=== PATIENT | female | born 1960 | race Caucasian/White ===

== ENCOUNTER 2018-12-11 18:48 | Emergency (ER) | payer BC ==
--- OUTSIDE RECORDS SUMMARY | 2018-12-11 18:51 | XMS REPORT | Clinical Summary ---
:1960 Author Organization [facility] Address [address] [place] [id number] Care Team Providers Name Role Phone Bertram Marquez MD Primary Care Provider Allergies Active Allergy Reactions Severity Noted Date Comments Sulfa (Sulfonamide Antibiotics) Medications No known medications Active Problems No known active problems Encounters Date Type Specialty Care Team Description 12/25/2017 Office Visit General Surgery Willard Robles Abdominal pain, MD [place] generalized (Primary Dx) after 12/10/2017 Family History Medical History Relation Name Comments Heart disease Father Hypertension Father Heart disease Mother Relation Name Status Comments Father Mother Social History Tobacco Use Types Packs/Day Years Used Date Never Smoker Smokeless Tobacco: Never Used Alcohol Use Drinks/Week oz/Week Comments No Sex Assigned at Date Recorded Not on file Job Start Date Occupation Industry Not on file Not on file Not on file Travel History Travel Start Travel End No recent travel history available. Last Filed Vital Signs Vital Sign Reading Time Taken Blood Pressure 134/81 12/25/2017 8:08 AM CDT Pulse 60 12/25/2017 8:08 AM CDT Temperature - - Respiratory Rate - - Oxygen Saturation - - Inhaled Oxygen Concentration - - Weight 90.3 kg (199 lb) 12/25/2017 8:08 AM CDT Height 165.1 cm (5' 5") 12/25/2017 8:08 AM CDT Body Mass Index 33.12 12/25/2017 8:08 AM CDT Plan of Treatment Health Maintenance Due Date Last Done Comments BREAST CANCER SCREENING 2008 COLONOSCOPY SCREENING 2008 SHINGLES VACCINES (#1) 2008 INFLUENZA VACCINE 01/29/2019 Results Not on fileafter 12/10/2017 Advance Directives Patient has advance care planning documents on file. For more information, please contact:[facility] [place] [address]
--- NOTE | 2018-12-11 20:26 | ER ---
Nurse's Notes [facility] Name: Dorota Magaña Age: 58 yrs Sex: Female : 1960 Arrival Date: 12/11/2018 Time: 18:57 Bed 13 Private MD: Diagnosis: Acute laryngitis;Acute upper respiratory infection, unspecified Presentation: 12/11 18:57 Presenting complaint: Patient states: sore throat for two days, feels like throat is ch swollen, feels like glands are swollen. nasal drainage, not feeling well. Transition of care: patient was not received from another setting of care. Onset of symptoms was December 09, 2018. Risk Assessment: Do you want to hurt yourself or someone else? Patient reports no desire to harm self or others. Initial Sepsis Screen: Does the patient meet any 2 criteria? No. Patient's initial sepsis screen is negative. Does the patient have a suspected source of infection? No. Patient's initial sepsis screen is negative. Care prior to arrival: None. 18:57 Method Of Arrival: Ambulatory 18:57 Acuity: JAVAN 3 ch Triage Assessment: 19:02 General: Appears in no apparent distress. comfortable, Behavior is calm, cooperative, ch appropriate for age. Pain: Complains of pain in throat Pain currently is 8 out of 10 on a pain scale. EENT: Reports pain when swallowing. Historical: - Allergies: 19:02 Sulfa (Sulfonamide Antibiotics); ch - Home Meds: 19:02 gabapentin 100 mg oral cap [Active]; atorvastatin 20 mg oral tab 1 tab once daily ch [Active]; Synthroid 100 mcg Oral tab 1 tab once daily [Active]; alprazolam 0.5 mg Oral Tb24 1 tab once daily [Active]; amlodipine 2.5 mg tab 1 tab once daily [Active]; poroxetine er 25mg once daily [Active]; telmisartan 40 mg oral tab 1 tab once daily [Active]; Glucosamine 500 mg oral tab [Active]; Vitamin D Oral [Active]; Claritin 10 mg Oral tab 1 tab once daily [Active]; - PMHx: 19:02 graves disease; self cath- bladder doesnt work; bowel necropsy in rectum; ch - PSHx: 19:02 Hysterectomy; Cholecystectomy; bowel sx; ch - Immunization history:: Adult Immunizations up to date. - Social history:: Smoking status: Patient/guardian denies using tobacco, Patient/guardian denies using alcohol, street drugs. - Ebola Screening: : Patient negative for fever greater than or equal to 101.5 degrees Fahrenheit, and additional compatible Ebola Virus Disease symptoms Patient denies exposure to infectious person Patient denies travel to an Ebola-affected area in the 21 days before illness onset No symptoms or risks identified at this time. Screenin:10 Abuse screen: Denies threats or abuse. Nutritional screening: No deficits noted. jb4 Tuberculosis screening: No symptoms or risk factors identified. Fall Risk None identified. Assessment: 20:10 General: Appears in no apparent distress. comfortable, Behavior is calm, cooperative, jb4 appropriate for age. Pain: Complains of pain in throat Pain does not radiate. Pain currently is 5 out of 10 on a pain scale. Neuro: Level of Consciousness is awake, alert, obeys commands, Oriented to person, place, time, situation. Cardiovascular: Patient's skin is warm and dry. Respiratory: Airway is patent Respiratory effort is even, unlabored, Respiratory pattern is regular, symmetrical, Breath sounds are clear bilaterally. GI: No signs and/or symptoms were reported involving the gastrointestinal system. : No signs and/or symptoms were reported regarding the genitourinary system. EENT: Reports sore throat. Derm: Skin is intact, Skin is pink, warm \T\ dry. Musculoskeletal: Circulation, motion, and sensation intact. 20:45 Reassessment: Patient appears in no apparent distress at this time. Patient and/or jb4 family updated on plan of care and expected duration. Pain level reassessed. Patient is alert, oriented x 3, equal unlabored respirations, skin warm/dry/pink. Vital Signs: 19:02 BP 137 / 84; Pulse 64; Resp 16; Temp 98.8; Pulse Ox 99% on R/A; Weight 86.18 kg; Height 5 ft. 5 in. (165.10 cm); Pain 5/10; 20:45 BP 148 / 80; Pulse 73; Resp 16; Pulse Ox 100% on R/A; jb4 19:02 Body Mass Index 31.62 (86.18 kg, 165.10 cm) ED Course: 18:57 Patient arrived in ED. mr 18:58 Triage completed. 19:02 Arm band placed on left wrist. Patient placed in waiting room. 20:08 [facility]oe Mcfarlane FNP-C [facility]. snw 20:08 Shar Ruffin MD is Attending Physician. snw 20:08 Solomon Vega, RN is Primary Nurse. jb4 20:10 Patient has correct armband on for positive identification. Bed in low position. Call jb4 light in reach. Side rails up X 1. Pulse ox on. NIBP on. 21:00 No provider procedures requiring assistance completed. Patient did not have IV access jb4 during this emergency room visit. Administered Medications: 20:40 Drug: Decadron 10 mg Route: IM; Site: Other; jb4 21:00 Follow up: Response: No adverse reaction jb4 20:40 Drug: Motrin Suspension 2 tsp Route: PO; jb4 21:00 Follow up: Response: No adverse reaction jb4 Outcome: 20:25 Discharge ordered by . snw 21:00 Discharged to home ambulatory, with family. jb4 21:00 Condition: stable 21:00 Discharge instructions given to patient, Instructed on discharge instructions, follow up and referral plans. Demonstrated understanding of instructions, follow-up care. 21:11 Patient left the ED. jb4 Signatures: Deidra Manzano, MARTHA RN Zoe Mcfarlane FNP-C FNP-[facility] Brianne Pacheco mr Solomon Vega, RN RN jb4
--- NOTE | 2018-12-11 20:26 | EDPHYS ---
Physician Documentation [facility] Name: Dorota Magaña Age: 58 yrs Sex: Female : 1960 Arrival Date: 12/11/2018 Time: 18:57 Bed 13 Private MD: ED Physician Shar Ruffin HPI: 12/11 20:43 This 58 yrs old Female presents to ER via Ambulatory with complaints of Sore snw Throat, Breathing Difficulty. 20:43 The patient presents with sore throat. The patient describes throat pain as scratchy, snw suffocating. Onset: The symptoms/episode began/occurred suddenly, 2 day(s) ago, and became persistent. Severity of symptoms: At their worst the symptoms were mild, moderate. Associated signs and symptoms: Pertinent positives: cough, flu-like symptoms. The patient has not experienced similar symptoms in the past. It is unknown whether or not the patient has recently seen a physician. Historical: - Allergies: 19:02 Sulfa (Sulfonamide Antibiotics); ch - Home Meds: 19:02 gabapentin 100 mg oral cap [Active]; atorvastatin 20 mg oral tab 1 tab once daily ch [Active]; Synthroid 100 mcg Oral tab 1 tab once daily [Active]; alprazolam 0.5 mg Oral Tb24 1 tab once daily [Active]; amlodipine 2.5 mg tab 1 tab once daily [Active]; poroxetine er 25mg once daily [Active]; telmisartan 40 mg oral tab 1 tab once daily [Active]; Glucosamine 500 mg oral tab [Active]; Vitamin D Oral [Active]; Claritin 10 mg Oral tab 1 tab once daily [Active]; - PMHx: 19:02 graves disease; self cath- bladder doesnt work; bowel necropsy in rectum; ch - PSHx: 19:02 Hysterectomy; Cholecystectomy; bowel sx; ch - Immunization history:: Adult Immunizations up to date. - Social history:: Smoking status: Patient/guardian denies using tobacco, Patient/guardian denies using alcohol, street drugs. - Ebola Screening: : Patient negative for fever greater than or equal to 101.5 degrees Fahrenheit, and additional compatible Ebola Virus Disease symptoms Patient denies exposure to infectious person Patient denies travel to an Ebola-affected area in the 21 days before illness onset No symptoms or risks identified at this time. ROS: 20:40 Constitutional: Negative for fever, chills, and weight loss, Eyes: Negative for injury, snw pain, redness, and discharge, Cardiovascular: Negative for chest pain, palpitations, and edema, Abdomen/GI: Negative for abdominal pain, nausea, vomiting, diarrhea, and constipation, Back: Negative for injury and pain, : Negative for injury, bleeding, discharge, and swelling, MS/Extremity: Negative for injury and deformity, Skin: Negative for injury, rash, and discoloration, Neuro: Negative for headache, weakness, numbness, tingling, and seizure. 20:40 ENT: Positive for ear pain, nasal discharge, sinus congestion, sore throat. 20:40 Neck: Positive for anterior lymph nodes tender. 20:40 Respiratory: Positive for cough, with no reported sputum. Exam: 20:40 Constitutional: This is a well developed, well nourished patient who is awake, alert, snw and in no acute distress. Head/Face: Normocephalic, atraumatic. Eyes: Pupils equal round and reactive to light, extra-ocular motions intact. Lids and lashes normal. Conjunctiva and sclera are non-icteric and not injected. Cornea within normal limits. Periorbital areas with no swelling, redness, or edema. 20:40 Neck: Trachea midline, no thyromegaly or masses palpated, and no cervical lymphadenopathy. Supple, full range of motion without nuchal rigidity, or vertebral point tenderness. No Meningismus. Chest/axilla: Normal chest wall appearance and motion. Nontender with no deformity. No lesions are appreciated. Cardiovascular: Regular rate and rhythm with a normal S1 and S2. No gallops, murmurs, or rubs. Normal PMI, no JVD. No pulse deficits. Respiratory: Lungs have equal breath sounds bilaterally, clear to auscultation and percussion. No rales, rhonchi or wheezes noted. No increased work of breathing, no retractions or nasal flaring. Abdomen/GI: Soft, non-tender, with normal bowel sounds. No distension or tympany. No guarding or rebound. No evidence of tenderness throughout. Back: No spinal tenderness. No costovertebral tenderness. Full range of motion. Skin: Warm, dry with normal turgor. Normal color with no rashes, no lesions, and no evidence of cellulitis. MS/ Extremity: Pulses equal, no cyanosis. Neurovascular intact. Full, normal range of motion. Neuro: Awake and alert, GCS 15, oriented to person, place, time, and situation. Cranial nerves II-XII grossly intact. Motor strength 5/5 in all extremities. Sensory grossly intact. Cerebellar exam normal. Normal gait. 20:40 ENT: TM's: are normal, Nose: is normal, Mouth: is normal, Posterior pharynx: Airway: patent, erythema, that is mild, Dental exam: normal, Voice: is hoarse. Vital Signs: 19:02 BP 137 / 84; Pulse 64; Resp 16; Temp 98.8; Pulse Ox 99% on R/A; Weight 86.18 kg; Height ch 5 ft. 5 in. (165.10 cm); Pain 5/10; 20:45 BP 148 / 80; Pulse 73; Resp 16; Pulse Ox 100% on R/A; jb4 19:02 Body Mass Index 31.62 (86.18 kg, 165.10 cm) MDM: 20:12 Patient medically screened. snw 20:43 Data reviewed: vital signs, nurses notes. Data interpreted: Pulse oximetry: on room air snw is 99 %. Interpretation: normal. Counseling: I had a detailed discussion with the patient and/or guardian regarding: the historical points, exam findings, and any diagnostic results supporting the discharge/admit diagnosis, the presence of at least one elevated blood pressure reading (>120/80) during this emergency department visit, lab results, the need for outpatient follow up, to return to the emergency department if symptoms worsen or persist or if there are any questions or concerns that arise at home. Special discussion: I have referred the patient to see his PCP for further evaluation of high blood pressure. Based on the history and exam findings, there is no indication for further emergent testing or inpatient evaluation. I discussed with the patient/guardian the need to see the primary care provider for further evaluation of the symptoms. 12/11 19:04 Order name: Strep; Complete Time: 20:13 12/11 19:31 Order name: Throat Culture EDMS Administered Medications: 20:40 Drug: Decadron 10 mg Route: IM; Site: Other; [facility] 21:00 Follow up: Response: No adverse reaction jb4 20:40 Drug: Motrin Suspension 2 tsp Route: PO; jb4 21:00 Follow up: Response: No adverse reaction jb4 Disposition: 12/12 01:48 Co-signature as Attending Physician, Shar Ruffin MD. Disposition: 12/11/18 20:25 Discharged to Home. Impression: Acute laryngitis, Acute upper respiratory infection, unspecified. - Condition is Stable. - Discharge Instructions: Laryngitis, Upper Respiratory Infection, Adult, Cool Mist Vaporizer, Rehydration, Adult. - Medication Reconciliation Form, Thank You Letter, Antibiotic Education, Prescription Opioid Use form. - Follow up: Private Physician; When: 2 - 3 days; Reason: Recheck today's complaints, Continuance of care, Re-evaluation by your physician. Follow up: Emergency Department; When: As needed; Reason: Worsening of condition. Signatures: Dispatcher [employer] EDDeidra Mcgee RN RN ch Therrien, Shelly, VISUAL MERCHANDISING COORDINATOR-C VISUAL MERCHANDISING COORDINATOR-Cs[employer] Solomon Vega RN RN jb4 Starr, MD MIGUEL Myles Corrections: (The following items were deleted from the chart) 12/11 20:26 20:25 12/11/2018 20:25 Discharged to Home. Impression: Acute laryngitis. Condition is snw Stable. Forms are Medication Reconciliation Form, Thank You Letter, Antibiotic Education, Prescription Opioid Use. Follow up: Private Physician; When: 2 - 3 days; Reason: Recheck today's complaints, Continuance of care, Re-evaluation by your physician. Follow up: Emergency Department; When: As needed; Reason: Worsening of condition. snw 21:11 20:26 12/11/2018 20:25 Discharged to Home. Impression: Acute laryngitis; Acute upper jb4 respiratory infection, unspecified. Condition is Stable. Forms are Medication Reconciliation Form, Thank You Letter, Antibiotic Education, Prescription Opioid Use. Follow up: Private Physician; When: 2 - 3 days; Reason: Recheck today's complaints, Continuance of care, Re-evaluation by your physician. Follow up: Emergency Department; When: As needed; Reason: Worsening of condition. snw
[2018-12-11] MEDS ORDERED: DEXAMETHASONE 10 MG/ML VIAL ONE (20:48)
[2018-12-11] MEDS ORDERED: IBUPROFEN 100 MG/5 ML UCUP ONE (20:49)
== END 2018-12-11 21:11 | disposition home or self-care (01) ==
LOC: ER 18:48
DX: J04.0 Acute laryngitis (principal); J06.9 Acute upper respiratory infection, unspecified; E05.00 Thyrotoxicosis with diffuse goiter without thyrotoxic crisis or storm; Z88.2 Allergy status to sulfonamides
CPT/HCPCS: 87070; 87081; 96372; 99283; J1100